=== PATIENT | female | born 1965 | race Caucasian/White ===

== ENCOUNTER 2017-09-24 06:22 | Day surgery (SDC) | payer OTHER ==
[~2017-09-24 06:22] MED LIST: CLONAZEPAM0.25 MG PO; PREVACID30 M1 PO; TOPROL XL25 M1 PO; ULTRACET PO; WELLBUTRIN XL300 MG PO
== END 2017-09-24 11:30 | disposition home or self-care (01) ==
LOC: CIR.AMB 06:22
DX: E21.0 Primary hyperparathyroidism (principal)

== ENCOUNTER 2019-08-26 14:15 | Outpatient (CLI) | payer OTHER | END 2019-08-26 14:18 | disposition home or self-care (01) | LOC: RAD 14:15 | DX: M25.571 Pain in right ankle and joints of right foot (principal) ==

== ENCOUNTER 2019-09-03 06:55 | Outpatient (CLI) | payer OTHER | END 2019-09-03 07:17 | disposition home or self-care (01) | LOC: LAB 06:55 | DX: D64.89 Other specified anemias (principal); E88.89 Other specified metabolic disorders; D68.8 Other specified coagulation defects; N39.0 Urinary tract infection, site not specified; Z22.322 Carrier or suspected carrier of Methicillin resistant Staphylococcus aureus; Z76.89 Persons encountering health services in other specified circumstances; I10 Essential (primary) hypertension; I49.8 Other specified cardiac arrhythmias ==

== ENCOUNTER 2020-04-03 09:15 | Inpatient (IN) | payer OTHER ==
[~2020-04-03] VITALS: Ht 160 cm; Wt 66.7 kg
[2020-04-17] MEDS ORDERED: ATORVASTATIN CA20 MG PO (15:33)
[2020-04-28] MEDS ORDERED: PERCOCET 5-3251 EACH PO (08:40)
[2020-04-28] MEDS ORDERED: LEVSIN/SL0.125 MG SL (08:41)
[2020-04-28] MEDS ORDERED: INTESTINEX680 M1 PO (08:41)
== END 2020-04-28 10:19 | disposition home or self-care (01) | DRG 331 ==
LOC: SURH 04-24 07:15 → O/R 04-24 07:42 → SURH 04-24 07:42
PROVIDERS: ADMIT Surgery; ATTEND Surgery
PROC: 07BC4ZZ Excision of Pelvis Lymphatic, Percutaneous Endoscopic Approach (ICD-10-PCS; 2020-04-24)
PROC: 4A12X4Z Monitoring of Cardiac Electrical Activity, External Approach (ICD-10-PCS; 2020-04-24)
PROC: 4A033R1 Measurement of Arterial Saturation, Peripheral, Percutaneous Approach (ICD-10-PCS; 2020-04-24)
PROC: 0DTF4ZZ Resection of Right Large Intestine, Percutaneous Endoscopic Approach (ICD-10-PCS; principal; 2020-04-24 18:45)
DX: D12.2 Benign neoplasm of ascending colon (principal); E78.00 Pure hypercholesterolemia, unspecified; I34.1 Nonrheumatic mitral (valve) prolapse; I11.9 Hypertensive heart disease without heart failure; D64.9 Anemia, unspecified

== ENCOUNTER 2021-06-28 07:41 | Day surgery (SDC) | payer OTHER ==
[~2021-06-28 07:41] MED LIST changes: +ATORVASTATIN CA20 MG PO; +INTESTINEX680 M1 PO; +LEVSIN/SL0.125 MG SL; +PERCOCET 5-3251 EACH PO
== END 2021-06-28 13:45 | disposition home or self-care (01) ==
LOC: AMB-ENDOS 07:41
PROVIDERS: ATTEND Surgery
DX: K62.89 Other specified diseases of anus and rectum (principal); Z20.822 Contact with and (suspected) exposure to COVID-19